=== PATIENT | female | born 1960 | race Asian ===

== ENCOUNTER 2021-11-07 10:19 | Emergency (ER) | payer BC, OTHER ==
[~2021-11-07] VITALS: Ht 139.7 cm; Wt 56.2 kg
[2021-11-07] MEDS ORDERED: NORCO, ANEXSIA 5/325MG TABLET (HYDROcodone/ACETAMINOPHEN) PO ONE (11:30)
[2021-11-07] MEDS ORDERED: HYDR-3713 PO (12:27)
[2021-11-07 12:43] VITALS: BP 122/70
== END 2021-11-07 12:43 | disposition home or self-care (01) ==
LOC: M ED 10:19
DX: S52.031A Displaced fracture of olecranon process with intraarticular extension of right ulna, initial encounter for closed fracture (principal); I10 Essential (primary) hypertension; W19.XXXA Unspecified fall, initial encounter; Y92.009 Unspecified place in unspecified non-institutional (private) residence as the place of occurrence of the external cause; Y93.9 Activity, unspecified; Y99.9 Unspecified external cause status